=== PATIENT | male | born 1965 | race Caucasian/White ===

== ENCOUNTER → 2018-01-06 06:35 | Outpatient (CLI) | payer OTHER | END | disposition home or self-care (01) | LOC: LAB 06:35 | DX: Z12.11 Encounter for screening for malignant neoplasm of colon (principal); E03.8 Other specified hypothyroidism; E78.1 Pure hyperglyceridemia; I10 Essential (primary) hypertension; E11.9 Type 2 diabetes mellitus without complications; A64 Unspecified sexually transmitted disease; Z11.4 Encounter for screening for human immunodeficiency virus [HIV]; N31.8 Other neuromuscular dysfunction of bladder; N41.8 Other inflammatory diseases of prostate ==

== ENCOUNTER 2018-01-15 08:08 | Outpatient (CLI) | payer OTHER | END 2018-01-15 08:20 | disposition home or self-care (01) | LOC: LAB 08:08 | DX: E03.8 Other specified hypothyroidism (principal); Z12.11 Encounter for screening for malignant neoplasm of colon; E78.1 Pure hyperglyceridemia; I10 Essential (primary) hypertension; E11.9 Type 2 diabetes mellitus without complications; A64 Unspecified sexually transmitted disease ==

== ENCOUNTER → 2019-12-29 06:00 | Outpatient (CLI) | payer OTHER ==
[~2019-12-29 06:00] MED LIST: DESCOVY 200-251 EACH PO
== END | disposition home or self-care (01) ==
LOC: LAB 06:00 → ADM 10:00 → CIR.AMB 01-04 10:00 → EDSTATUS 01-23 10:00
PROVIDERS: ATTEND Surgery
DX: R85.610 Atypical squamous cells of undetermined significance on cytologic smear of anus (ASC-US) (principal); Z20.828 Contact with and (suspected) exposure to other viral communicable diseases; Z01.810 Encounter for preprocedural cardiovascular examination; Z01.812 Encounter for preprocedural laboratory examination; Z01.811 Encounter for preprocedural respiratory examination

== ENCOUNTER 2020-02-01 12:03 | Outpatient (CLI) | payer OTHER | END 2020-02-01 12:23 | disposition home or self-care (01) | LOC: LAB 12:03 | PROVIDERS: ATTEND Pediatrics | DX: D64.89 Other specified anemias (principal) ==

== ENCOUNTER 2021-04-30 12:20 | Outpatient (CLI) | payer OTHER | END 2021-04-30 12:27 | disposition home or self-care (01) | LOC: RAD 12:20 | PROVIDERS: ATTEND Ophthalmology | DX: R91.8 Other nonspecific abnormal finding of lung field (principal); I10 Essential (primary) hypertension ==